=== PATIENT | female | born 2000 | race Caucasian/White ===

== ENCOUNTER 2020-06-30 08:04 | Day surgery (SDC) | payer OTHER ==
[2020-06-24 15:28] LABS: BASOPHILS # (AUTO) 0.1 X10'3 (0-0.2); BASOPHILS % (AUTO) 0.7 % (0-1); EOSINOPHILS # (AUTO) 0.2 X10'3 (0-0.9); EOSINOPHILS % (AUTO) 1.8 % (0-6); LYMPHOCYTES # (AUTO) 2.4 X10'3 (1.1-4.8); LYMPHOCYTES % (AUTO) 21.4 % (21-51); MEAN CORPUSCULAR HEMOGLOBIN 26.8 PG (27.0-31.0); MEAN CORPUSCULAR HGB CONC 32.2 g/dL (33.0-36.5); MEAN CORPUSCULAR VOLUME 83.1 FL (78-98); MEAN PLATELET VOLUME 7.8 FL (7.4-10.4); MONOCYTES # (AUTO) 0.7 X10'3 (0-0.9); MONOCYTES % (AUTO) 6.2 % (2-12); NEUTROPHILS # (AUTO) 7.8 X10'3 (1.8-7.7); NEUTROPHILS % (AUTO) 69.9 % (42-75); PRE OP HEMOGLOBIN 13.2 g/dL (12.0-16.0); PRE OP PLATELET COUNT 383 X10'3 (140-440); RED BLOOD COUNT 4.94 X10'6 (4.20-5.60); RED CELL DISTRIBUTION WIDTH 13.8 % (11.5-14.5)
[2020-06-24 15:45] LABS: HCG SERUM QL NEGATIVE
[2020-06-24 16:08] LABS: ALBUMIN 3.7 G/DL (3.4-5.0); ALBUMIN/GLOBULIN RATIO 0.8 (1.1-1.5); ALKALINE PHOSPHATASE 69 IU/L (46-116); BLOOD UREA NITROGEN 10 MG/DL (7-18); BUN/CREATININE RATIO 15.6 (6.6-38.0); CALCIUM 9.7 MG/DL (8.5-10.1); CHLORIDE 106 MMOL/L (99-107); CREATININE 0.64 MG/DL (0.40-0.90); PRE OP ALT 21 U/L (30-65); PRE OP ANION GAP 10 (8-16); PRE OP AST 17 U/L (10-37); PRE OP BILIRUB, TOTAL 0.5 MG/DL (0.0-1.0); PRE OP GLUCOSE 86 MG/DL (70-104); PRE OP POTASSIUM 3.4 MMOL/L (3.4-5.1); PRE OP SODIUM 141 MMOL/L (135-145); TOTAL PROTEIN 8.6 G/DL (6.4-8.2); eGFR > 90 ML/MIN
[2020-06-30] VITALS (7 sets, daily range): BP systolic 124–152; BP diastolic 73–93
[~2020-06-30] VITALS: Ht 160 cm; Wt 113.4 kg
[~2020-06-30 08:04] MED LIST: IBUP-1986 PO; META-25 PO; cefazolin/dext.iso 2gm/100ml 100 ML IV ONE; famotidine 20mg tablet PO ONE; ringers solution, lacted 1,000 ML IV SCH; vancomycin 1,500 MG in NS 300ml IV soln IV ONE
[2020-06-30] MEDS ORDERED: acetaminophen 1,000mg/100ml IV 100 ML IV PRN (09:25)
[2020-06-30] MEDS ORDERED: morphine 2 MG/ML inj. syringe IV PRN (09:25)
[2020-06-30] MEDS ORDERED: proCHLORperazine 10 MG/2 ml inj IV PRN (09:25)
[2020-06-30] MEDS ORDERED: labetalol 20mg/4ml (5mg/ml) syringe IV PRN (09:25)
[2020-06-30] MEDS ORDERED: ringers solution, lacted 1,000 ML IV SCH (09:25)
[2020-06-30] MEDS ORDERED: ketorolac trometh. 30mg/ml inj. IV ONE (09:25)
[2020-06-30] MEDS ORDERED: hydrALAZINE 20mg/ml inj. IV PRN (09:25)
[2020-06-30] MEDS ORDERED: morphine 4 MG/ML inj SYRINge IV PRN (09:25)
[2020-06-30] MEDS ORDERED: meperidine/PF 25mg/ml syringe IV PRN ×3 (09:25)
[2020-06-30] MEDS ORDERED: ondansetron/PF 4mg/2ml inj IV PRN (09:25)
[2020-06-30] MEDS ORDERED: BUPIVAcaine/PF 2.5mg/ml (0.25%) 10ml vial ONE (10:00)
--- NOTE | 2020-06-30 10:22 | NUR ---
PT. DECLINED PLACING WALLET INTO SAFE. STATES, "IF THEY NEED IT THAT BAD THEY CAN HAVE IT." Addendum: 06/30/20 at 1022 by Palak Rodriguez RN Amended: Links added.
[2020-06-30] MEDS ORDERED: LIDOcaine 2% 5ml jelly ONE (10:25)
[2020-06-30] MEDS ORDERED: neostigmine methylsulfate 1 MG/ML 10ml vial ONE (10:31)
[2020-06-30] MEDS ORDERED: sevoflurane 250ml liquid IH ONE (10:31)
[2020-06-30] MEDS ORDERED: glycopyrrolate 0.2mg/ml inj ONE (10:31)
[2020-06-30] MEDS ORDERED: fentaNYL/PF 50MCG/1 ML 2ML syringe ONE (10:33)
[2020-06-30] MEDS ORDERED: midazolam 1 mg/ML 2ml injection ONE (10:33)
[2020-06-30] MEDS ORDERED: propofol inj 20 ML IV ONE (11:05)
[2020-06-30] MEDS ORDERED: rocuronium 10mg/ml inj IV ONE (11:05)
[2020-06-30] MEDS ORDERED: ROPIVAcaine 0.5% (5mg/ml) 30ml vial ONE (11:05)
[2020-06-30] MEDS ORDERED: LIDOcaine 1%/PF 5ML 10 MG/ML VIAL ONE (11:05)
[2020-06-30] MEDS ORDERED: dexamethasone sod phosphate 4mg/ml inj. ONE (11:05)
[2020-06-30] MEDS ORDERED: LIDOcaine 2% (20mg/ml) 5ml vial ONE (11:05)
[2020-06-30] MEDS ORDERED: ondansetron/PF 4mg/2ml inj ONE (11:05)
--- NOTE | 2020-06-30 12:06 | NUR ---
Received from OR via BED , accompanied by Anesthesiologist and report given by Anesthesiolgist. PATIENT WAKING UP, NO S/S OF PAIN, V/S WNL, SCD ON, 20G TO LUE, RIGHT SHOULDER DRESSING CDI WITH SLING ON.
--- NOTE | 2020-06-30 12:56 | NUR ---
PATIENT A&OX4, DENIES PAIN, V/S WNL, SCD ON, 20G TO LUE D/C, RIGHT SHOULDER DRESSING CDI WITH SLING. I HAVE REVIEWED D/C INSTRUCTIONS WITH PATIENT AND THEY HAVE VERBALIZED UNDERSTANDING , PATIENT D/C HOME WITH ALL BELONGINGS AND TRANSPORT GIVEN BY FRIENDS.
== END 2020-06-30 12:56 | disposition home or self-care (01) ==
LOC: PAS 08:04
PROVIDERS: ATTEND Orthopaedic Surgery
DX: M75.41 Impingement syndrome of right shoulder (principal); M19.011 Primary osteoarthritis, right shoulder; M25.511 Pain in right shoulder; M65.811 Other synovitis and tenosynovitis, right shoulder; Z20.822 Contact with and (suspected) exposure to COVID-19; M94.211 Chondromalacia, right shoulder; F41.9 Anxiety disorder, unspecified; E66.01 Morbid (severe) obesity due to excess calories; Z68.42 Body mass index [BMI] 45.0-49.9, adult; Z98.890 Other specified postprocedural states; Z79.899 Other long term (current) drug therapy
CPT/HCPCS: 29821; 29823; 29824; 29826; 36415; 64415; 76937; 76942; 80053; 84703; 85025; 93005; J0131; J1100; J1885; J2001; J2250; J2405; J2704; J2710; J3010; J3370; J3490; J7040; U0003; A4215; A4565; A4618; A6250; A6449; A7000; J2795; J7120